=== PATIENT | female | born 1945 | race Caucasian/White ===

== ENCOUNTER → 2018-02-21 | Outpatient (CLI) | payer MEDICARE, BC ==
--- NOTE | 2018-02-21 11:40 | MM ---
Reason for exam: additional evaluation requested from prior study. Last mammogram was performed 21 years ago. History: Patient is postmenopausal, has history of breast cancer at age 50, and history of other cancer. Benign excisional biopsy of the left breast, 1996. Breast lifts of both breasts, 1995. Mastectomy of the right breast. Physical Findings: Nurse did not find any significant physical abnormalities on exam. MG 3D Diag Mammo W/Cad LT CC, MLO, and ML view(s) were taken of the left breast. Prior study comparison: February 09, 1997, left breast special view mammogram. There are scattered fibroglandular densities. Benign dystrophic calcifications in the left breast. No suspicious abnormality. Upper outer quadrant asymmetries and post surgical change are stable on the left. These results were verbally communicated with the patient and result sheet given to the patient on 02/21/18. ASSESSMENT: Benign, BI-RAD 2 RECOMMENDATION: Routine screening mammogram of the left breast in 1 year.
== END | disposition home or self-care (01) ==
LOC: RADMAMWWP 09:55
PROVIDERS: ATTEND Obstetrics & Gynecology
DX: Z08 Encounter for follow-up examination after completed treatment for malignant neoplasm (principal); Z85.3 Personal history of malignant neoplasm of breast
CPT/HCPCS: 77065; G0279; 77061

== ENCOUNTER → 2019-04-18 | Outpatient (CLI) | payer MEDICARE, BC ==
--- NOTE | 2019-04-18 13:35 | MM ---
Reason for exam: additional evaluation requested from prior study. Last mammogram was performed 1 year and 2 months ago. History: Patient is postmenopausal, has history of breast cancer at age 50, and history of other cancer. Benign excisional biopsy of the left breast, 1996. Breast lifts of both breasts, 1995. Mastectomy of the right breast. Physical Findings: Nurse did not find any significant physical abnormalities on exam. MG 3D Diag Mammo W/Cad LT CC and MLO view(s) were taken of the left breast. Prior study comparison: February 21, 2018, left breast MG 3d diag mammo w/cad LT. February 09, 1997, left breast special view mammogram. The breast tissue is heterogeneously dense. This may lower the sensitivity of mammography. Finding #1: Architectural distortion in the outer quadrant of the left breast consistent with known excision changes. Finding #2: There are typically benign vascular, dystrophic calcifications in the left breast. There is a chronic nodularity in the left breast. There is no new dominant lesion. Left benign axillary lymph nodes. These results were verbally communicated with the patient and result sheet given to the patient on 04/18/19. ASSESSMENT: Benign, BI-RAD 2 RECOMMENDATION: Follow-up diagnostic mammogram of the left breast in 1 year.
== END ==
LOC: RADMAMWWP 12:45
PROVIDERS: ATTEND Obstetrics & Gynecology
DX: N64.4 Mastodynia (principal); Z85.3 Personal history of malignant neoplasm of breast
CPT/HCPCS: 77065; G0279; 77061

== ENCOUNTER → 2020-07-02 | Outpatient (CLI) | payer MEDICARE, BC ==
--- NOTE | 2020-07-02 13:29 | MM ---
Reason for exam: additional evaluation requested from prior study. Last mammogram was performed 1 year and 3 months ago. History: Patient is postmenopausal, has history of breast cancer at age 50, and history of other cancer. Benign excisional biopsy of the left breast, 1996. Breast lifts of both breasts, 1995. Mastectomy of the right breast. Physical Findings: Nurse did not find any significant physical abnormalities on exam. MG 3D Diag Mammo W/Cad LT CC and MLO view(s) were taken of the left breast. Prior study comparison: April 18, 2019, left breast MG 3d diag mammo w/cad LT. February 21, 2018, left breast MG 3d diag mammo w/cad LT. The breast tissue is heterogeneously dense. This may lower the sensitivity of mammography. There is no discrete abnormality. No significant new findings when compared with previous films. These results were verbally communicated with the patient and result sheet given to the patient on 07/02/20. ASSESSMENT: Benign, BI-RAD 2 RECOMMENDATION: Routine screening mammogram of both breasts in 1 year.
== END | disposition home or self-care (01) ==
LOC: RADMAMWWP 10:04
PROVIDERS: ATTEND Obstetrics & Gynecology
DX: Z08 Encounter for follow-up examination after completed treatment for malignant neoplasm (principal); Z85.3 Personal history of malignant neoplasm of breast; Z98.82 Breast implant status
CPT/HCPCS: 77065; G0279; 77061

== ENCOUNTER → 2021-08-01 | Outpatient (CLI) | payer MEDICARE, BC ==
--- NOTE | 2021-08-01 10:31 | MM ---
Reason for exam: additional evaluation requested from prior study. Last mammogram was performed 1 year and 1 month ago. History: Patient is postmenopausal, has history of breast cancer at age 50, and history of other cancer. Benign excisional biopsy of the left breast, 1996. Breast lifts of both breasts, 1995. Mastectomy of the right breast. Physical Findings: A clinical breast exam by your physician is recommended on an annual basis and results should be correlated with mammographic findings. MG 3D Diag Mammo W/Cad LT CC and MLO view(s) were taken of the left breast. Prior study comparison: July 02, 2020, left breast MG 3d diag mammo w/cad LT. April 18, 2019, left breast MG 3d diag mammo w/cad LT. The breast tissue is heterogeneously dense. This may lower the sensitivity of mammography. Stable benign calcifications. There is chronic nodularity. There is no dominant lesion. No significant new findings when compared with previous films. Results were given to the patient verbally at the time of the exam. ASSESSMENT: Benign, BI-RAD 2 RECOMMENDATION: Follow-up diagnostic mammogram of the left breast in 1 year.
== END | disposition home or self-care (01) ==
LOC: RADMAMWWP 10:03
PROVIDERS: ATTEND Obstetrics & Gynecology
DX: R92.1 Mammographic calcification found on diagnostic imaging of breast (principal); Z85.3 Personal history of malignant neoplasm of breast; Z78.0 Asymptomatic menopausal state
CPT/HCPCS: 77065; G0279; 77061

== ENCOUNTER → 2023-09-22 | Outpatient (CLI) | payer MEDICARE, BC ==
--- NOTE | 2023-09-22 09:57 | MM ---
Reason for Exam: Additional evaluation requested from prior study. Last mammogram was performed 1 year(s) and 1 month(s) ago. Patient History: Menarche at age 10. First Full-Term at age 18. Postmenopausal. Breast cancer, right, age 50. Mastectomy on the Right side. 1996, Benign Excisional Biopsy on the left side. Prior Study Comparison: 07/02/2020 Left Diagnostic Mammogram, [facility]. 08/01/2021 Left Diagnostic Mammogram, [facility]. 08/04/2022 Left MG 3D diag mammo w/cad LT, [facility]. Tissue Density: Left: The breasts are heterogeneously dense, which may obscure small masses. Findings: Analyzed By CAD. No mass or distortion. No suspicious calcifications. Overall Assessment: Benign, BI-RAD 2 Management: Diagnostic Mammogram of the left breast in 1 year. . Results were given to the patient verbally at the time of exam. Patient should continue monthly self-breast exams. A clinical breast exam by your physician is recommended on an annual basis. This exam should not preclude additional follow-up of suspicious palpable abnormalities. Note on Kendal scores and lifetime risk: 1. A Kendal score greater than 3% is considered moderate risk. If this is the case, consider specialist referral to assess eligibility for a risk reducing agent. 2. If overall lifetime risk for the development of breast cancer is 20% or higher, the patient may qualify for future screening with alternating mammogram and breast MRI. Electronically signed and approved by: Jimmie Saldivar M.D. Radiologis
== END | disposition home or self-care (01) ==
LOC: RADMAMWWP 09:25
PROVIDERS: ATTEND Family Medicine
DX: Z12.31 Encounter for screening mammogram for malignant neoplasm of breast (principal); D05.11 Intraductal carcinoma in situ of right breast; R92.332 Mammographic heterogeneous density, left breast; Z78.0 Asymptomatic menopausal state; Z80.3 Family history of malignant neoplasm of breast
CPT/HCPCS: 77065; G0279; 77061

== ENCOUNTER → 2024-01-07 | Outpatient (CLI) | payer MEDICARE, BC ==
--- NOTE | 2024-01-07 14:40 | CT ---
EXAMINATION TYPE: CT iac wo con DATE OF EXAM: 01/07/2024 COMPARISON: None HISTORY: hearing loss and tinnitus both ears CT DLP: 150mGycm Automated exposure control for dose reduction was used. FINDINGS: The external auditory canals are patent bilaterally. Mastoid air cells show no evidence of abnormal opacification bilaterally. The middle ear ossicles are symmetric and unremarkable. There is no evidence of suspicious surrounding soft tissue density to suggest cholesteatoma. The scutum is preserved bilaterally. The cochlea and the semicircular canals are symmetric and unremarkable. Ves tibular aqueduct and internal carotid canal appear unremarkable. Temporomandibular joints are mainta ined bilaterally. IMPRESSION: No significant abnormality seen to account for patient's symptoms. [facility], , 01/07/2024 2:37 PM
== END | disposition home or self-care (01) ==
LOC: RADCTMAIN 14:19
PROVIDERS: ATTEND Otolaryngology
DX: H93.13 Tinnitus, bilateral (principal)
CPT/HCPCS: 70480